=== PATIENT | female | born 1975 | race Caucasian/White ===

== ENCOUNTER → 2021-10-30 | Outpatient (CLI) | payer BC ==
[2021-10-30 10:38] LABS: BASO # 0.04 K/mm3 (0.02-0.10); EOS # 0.15 K/mm3 (0.04-0.40); EOS % 1.5 % (1.0-5.0); HEMATOCRIT 42.3 % (37.0-47.0); HEMOGLOBIN 13.9 g/dL (12.5-16.0); LYMPH# 2.15 K/mm3 (1.50-4.00); MEAN CELL VOLUME 95 fl (78-100); MEAN CORPUSCULAR HEMOGLOBIN 31 pg (27-31); MEAN CORPUSCULAR HGB CONC 33 g/dL (33-37); MEAN PLATELET VOLUME 9.5 fl (7.4-10.4); MONO # 0.72 K/mm3 (0.20-0.80); NEU # 6.88 K/mm3 (1.40-6.50); PLATELET COUNT 411 K/mm3 (130-400); RED BLOOD COUNT 4.46 M/mm3 (4.10-5.30); RED CELL DISTRIBUTION WIDTH 12.9 % (11.5-14.5)
[2021-10-30 10:42] LABS: ALBUMIN 4.2 g/dL (3.5-5.0); POTASSIUM 4.4 mmol/L (3.5-5.1); SODIUM 139 mmol/L (136-145)
[2021-10-30 10:43] LABS: CALCIUM 9.8 mg/dL (8.3-10.5)
[2021-10-30 10:44] LABS: GLUCOSE 93 mg/dL (65-105); TOTAL PROTEIN 7.1 g/dL (6.4-8.3)
[2021-10-30 10:45] LABS: CARBON DIOXIDE 21 mmol/L (22-29)
[2021-10-30 10:46] LABS: TOTAL BILIRUBIN 0.3 mg/dL (0.2-1.2)
[2021-10-30 10:50] LABS: AST-SGOT 13 U/L (5-34)
[2021-10-30 10:51] LABS: ALT/SGPT 16 U/L (0-55)
== END ==
LOC: RAD 09:59
PROVIDERS: Family Medicine
DX: R51.9 Headache, unspecified (principal); D64.9 Anemia, unspecified

== ENCOUNTER 2021-11-11 15:03 | Outpatient (RCR) | payer BC | END 2021-12-04 | disposition home or self-care (01) | LOC: OT | DX: M25.532 Pain in left wrist (principal) ==

== ENCOUNTER 2021-12-05 13:30 | Outpatient (RCR) | payer BC | END 2022-01-04 | disposition home or self-care (01) | LOC: OT | DX: M25.532 Pain in left wrist (principal) ==